=== PATIENT | male | born 1995 | race Caucasian/White ===

== ENCOUNTER 2017-01-24 16:00 | Emergency (ER) | payer OTHER ==
--- NOTE | 2017-01-24 18:40 | RAD ---
Exam: Two-view chest COMPARISON: None INDICATION: Fever, body aches and coughing. Exposed to bronchitis. FINDINGS: PA and lateral views of the chest were obtained. Cardiac silhouette is within normal limits. Lungs are well-inflated. There is mild bronchial thickening within the lung bases, greater on the left. There is no focal space disease or pleural effusion. Bones of the chest wall within normal limits. IMPRESSION: No radiographic evidence of pneumonia. Mild bronchial wall thickening is suggested within the lung bases, left greater than right.
[2017-01-24] MEDS ORDERED: IBUPROFEN 600 MG TABLET ONE (19:28)
[2017-01-24] MEDS ORDERED: ACETAMINOPHEN 325 MG TABLET ONE (19:28)
== END 2017-01-24 19:46 | disposition home or self-care (01) ==
LOC: ED 16:00
DX: J06.9 Acute upper respiratory infection, unspecified (principal)
CPT/HCPCS: 71020; 99283 ×2; A9270 ×2